=== PATIENT | female | born 1995 | race Caucasian/White ===

== ENCOUNTER 2025-02-25 14:32 | Emergency (ER) | payer OTHER, SELFPAY ==
[2025-02-25] VITALS (7 sets, daily range): BP systolic 118–161; BP diastolic 69–106; PULSE 74–103; RESP 18–19; TEMP 37.3; O2SAT 96–99; BMI 32.5
--- NOTE | 2025-02-25 14:47 | EKG_ITS ---
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
--- NOTE | 2025-02-25 14:51 | DI.RAD.S_ITS ---
PROCEDURE: XR CHEST 1V INDICATIONS: Chest Pain TECHNIQUE: One view of the chest was acquired. COMPARISON: None. FINDINGS: Surgical changes and devices: None. Lungs and pleura: Lungs are clear. No pleural effusions or pneumothorax. Mediastinum: Mediastinal contours appear normal. Heart size is normal. Bones and chest wall: No suspicious bony lesions. Overlying soft tissues appear unremarkable. IMPRESSION: No acute cardiopulmonary abnormality is seen. Approved by: Lucio Walters M.D. on 02/25/2025 at 15:56
[2025-02-25 15:06] LABS: Add Manual Diff / Slide Review NO; Hematocrit 42.2 % (36-46); Hemoglobin 14.7 g/dL (12.0-16.0); Lymphocytes Absolute Auto 1900 /uL (1100-4500); Mean Corpuscular HGB Conc 34.7 % (30-36); Mean Corpuscular Hemoglobin 31.2 PG (26-34); Mean Corpuscular Volume 89.9 fL (80-100); Platelet Count 283 X10^3/uL (150-400)
--- NOTE | 2025-02-25 15:15 | ED.CHESTPAIN ---
HPI - Chest Pain General Chief Complaint: Chest Pain Stated Complaint: chest tightness Time Seen by Provider: 02/25/25 14:56 Source: patient Mode of arrival: Ambulatory Limitations: no limitations History of Present Illness HPI narrative: Otherwise healthy 29[place]year[place] of chest pain sent to the ER for further evaluation. On that in the evening she had fleeting episode of severe stabbing chest pain going from her mid left chest to the left arm. Resolved. Was not associated with exercise. Similar episode again on the . She woke up this morning is now having generalized tightness and aching across her upper chest. She notes that she has had some exertional dyspnea that seems a bit worse today but no chest pain or palpitations. Today's upper chest tightness is described as a 3/10 where as the severe stabbing pain which is quite different she described as an 8/10. Blood pressure is significantly elevated today she does not carry a diagnosis of primary hypertension. There was no significant cardiac disease in her family. Related Data Allergies Allergy/AdvReac Type Severity Reaction Status Date / Time No Known Drug Allergies Allergy Verified 02/25/25 14:46 Exam Initial Vital Signs Initial Vital Signs: Vital Signs Pulse Rate 103 H 02/25/25 14:43 Pulse Oximetry 98 02/25/25 14:43 Course Orders Ordered: ED Orders 02/25/25 14:51 XR chest 1V Stat Complete Blood Count AUTO DIFF Stat Comprehensive Metabolic Panel Stat D Dimer Stat Lipase Stat Magnesium Stat NT-proBNP (BNP-Adult 18+) Stat PTT Partial Thromboplastin Prem Stat Prothrombin Time INR Stat Troponin & CK Cardiac Panel Stat EKG-12 Lead Stat Discontinued Medications Aspirin (Aspirin 81 Mg Chew Tab) 324 mg PO NOW ONE Stop: 02/25/25 14:51 Last Admin: 02/25/25 15:53 Dose: Not Given Documented By: LIAM Metoprolol Tartrate (Metoprolol Ir 25 Mg Tablet) 50 mg PO NOW ONE Stop: 02/25/25 15:40 Last Admin: 02/25/25 15:45 Dose: 50 mg Documented By: LIAM Vital Signs Vital signs: Vital Signs - 8 hr 02/25/25 14:43 02/25/25 14:46 02/25/25 15:00 Temperature 99.2 F Pulse Rate 103 H 103 H 99 H Respiratory Rate 18 Blood Pressure 161/106 H Pulse Oximetry 98 99 97 Oxygen Delivery Method Room Air 02/25/25 15:30 02/25/25 15:45 02/25/25 15:45 Temperature Pulse Rate 93 H 94 H Respiratory Rate Blood Pressure 141/81 H Pulse Oximetry 98 98 Oxygen Delivery Method 02/25/25 16:00 02/25/25 16:00 02/25/25 16:30 Temperature Pulse Rate 86 Respiratory Rate 19 Blood Pressure 120/69 118/74 Pulse Oximetry 96 Oxygen Delivery Method 02/25/25 16:30 Temperature Pulse Rate 74 Respiratory Rate 19 Blood Pressure Pulse Oximetry 97 Oxygen Delivery Method MDM - Chest Pain Lab Data 02/25/25 14:51 02/25/25 14:51 Labs: Lab Results 02/25/25 Range/Units 14:51 WBC 7.4 (4.5-11.0) X10^3/uL RBC 4.69 (4.0-5.2) X10^6/uL Hgb 14.7 (12.0-16.0) g/dL Hct 42.2 (36-46) % MCV 89.9 (80-100) fL MCH 31.2 (26-34) PG MCHC 34.7 (30-36) % RDW 12.7 (11.6-14.8) % Plt Count 283 (150-400) X10^3/uL Neut % (Auto) 65.5 (50-75) % Lymph % (Auto) 26.0 (25-40) % [place] % (Auto) 6.2 (3-14) % Eos % (Auto) 1.9 L (2-4) % Baso % (Auto) 0.4 (0-2) % Neut # (Auto) 4800 (4285-9812) /uL Lymph # (Auto) 1900 (3994-3309) /uL [place] # (Auto) 500 (0-900) /uL Eos # (Auto) 100 (0-450) /uL Baso # (Auto) 0 (0-100) /uL PT 10.9 (9.4-12.5) SECONDS INR 1.0 (0.9-1.3) APTT 34 (25.1-36.5) SECONDS D-Dimer 242 (<500) ng/ml Sodium 140 (137-145) mmol/L Potassium 4.0 (3.4-5.1) mmol/L Chloride 106 (98-107) mmol/L Carbon Dioxide 23 (22-32) mmol/L BUN 20 H (7-17) mg/dL Creatinine 0.85 (0.52-1.04) mg/dL Estimated GFR > 60 (>60) mL/min BUN/Creatinine Ratio 23.5 H (6-22) Glucose 121 H (70-99) mg/dL Calcium 9.3 (8.4-10.2) mg/dL Magnesium 1.9 (1.6-2.3) mg/dL Total Bilirubin 0.4 (0.2-1.3) mg/dL AST 25 (14-36) IU/L ALT 16 (<35) IU/L Alkaline Phosphatase 52 (38-126) U/L Total Creatine Kinase 49 (30-135) U/L Troponin I < 0.012 (0.01-0.034) ng/mL NT-Pro-B Natriuret Pep < 20 (<125) pg/mL Total Protein 8.1 (6.3-8.2) g/dL Albumin 4.9 (3.5-5.0) g/dL Globulin 3.2 (1.7-4.1) g/dL Albumin/Globulin Ratio 1.5 (1.0-2.8) Lipase 63 (23-300) U/L MDM Narrative Medical decision making narrative: CC: Chest pain Complicating co-morbidities: Elevated blood pressure today, no previous diagnosis Data collected from: patient Medical records reviewed: None available Differential considered: Musculoskeletal pain, pleurisy, pericarditis, myocarditis, acute coronary syndrome, dissection, lung pathology, hypertensive crisis Exam documented above, pertinent findings include: She does have some mild reproducible chest pain in the soft tissue across the upper chest bilaterally. She describes this is distinctly different from the severe lancinating pain earlier. Remainder of exam is benign Lab Test results independently reviewed as above. Pertinent findings: CBC: White blood cell count is unremarkable, no anemia Coagulation studies show normal PT and PTT Chemistries are reassuring normal creatinine. Initial troponin is undetectable, this is after at least 8 hours of chest pain ProBNP is not elevated Lipase is normal D-dimer is low Independently reviewed EKG: Sinus tachycardia at a rate of 101 without ischemic changes Imaging studies independently reviewed: Chest x-ray is unremarkable Treatments: IV Toradol Discussion: 29-year-old woman with 2 discrete episodes of severe chest pain and then diffuse reproducible chest pain over the upper pectoralis muscles today. Workup is entirely unremarkable pain is improved with Toradol. There was no evidence for acute coronary syndrome, pneumothorax, pneumonia, mass or pleural effusion, dissection pulmonary embolism or alternate explanation that would require further workup or hospitalization at this time. All of these issues and concerns are discussed with the patient. Recommended nonsteroidals for pain control and she is safe for discharge home heart score=0 Discharge Plan Departure Patient Disposition: Home Clinical Impression: Atypical chest pain Instructions: DI for Atypical Chest Pain Activity Restrictions/Additional Instructions: Thank you for coming in today I believe that the pain you are having is most likely related to musculoskeletal issues in likely is going to resolve with no further workup. Using 400 mg of ibuprofen (2 [id number] pills) and 1 Tylenol every 6 hours can be very helpful in controlling pain. Workup in the emergency room shows not sign of infection, heart attack or heart attack like syndrome, blood clots, dissection of the aorta, collapsed lung or any alternate diagnoses that are life-threatening and require further workup. If you find that you are getting worse or develop any new symptoms, please feel free to return to the emergency department for further evaluation. Stand Alone Forms: Patient Portal/API
[2025-02-25 15:19] LABS: Alanine Aminotransferase 16 IU/L (<35); Albumin 4.9 g/dL (3.5-5.0); Albumin Globulin Ratio 1.5 (1.0-2.8); Alkaline Phosphatase 52 U/L (38-126); Blood Urea Nitrogen 20 mg/dL (7-17); Calcium 9.3 mg/dL (8.4-10.2); Carbon Dioxide 23 mmol/L (22-32); Chloride 106 mmol/L (98-107); Creatine Kinase 49 U/L (30-135); Estimated Glomerular Filt Rate > 60 mL/min (>60); Globulin 3.2 g/dL (1.7-4.1); Glucose 121 mg/dL (70-99); HEMOLYSIS 17 (0-50); Lipase 63 U/L (23-300); Magnesium 1.9 mg/dL (1.6-2.3); Potassium 4.0 mmol/L (3.4-5.1); Sodium 140 mmol/L (137-145); Total Protein 8.1 g/dL (6.3-8.2)
[2025-02-25 15:31] LABS: NT-proBNP (BNP-Adult 18+) < 20 pg/mL (<125); Troponin I < 0.012 ng/mL (0.01-0.034)
[2025-02-25 15:34] LABS: INR 1.0 (0.9-1.3); Prothrombin Time 10.9 SECONDS (9.4-12.5)
[2025-02-25 15:37] LABS: PTT Partial Thromboplastin Tim 34 SECONDS (25.1-36.5)
[2025-02-25] MEDS: METOPROLOL IR 25 MG TABLET 50 MG PO (15:45)
== END 2025-02-25 18:05 | disposition home or self-care (01) ==
PROVIDERS: Emergency Medicine; Emergency Provider Emergency Medicine
DX: R07.89 Other chest pain (principal); R00.0 Tachycardia, unspecified; R03.0 Elevated blood-pressure reading, without diagnosis of hypertension
CPT/HCPCS: 36415; 71045; 80053; 82550; 83690; 83735; 83880; 84484; 85025; 85379; 85610; 85730; 93005; 93010; 99284